=== PATIENT | male | born 1990 | race African-American/Black ===

== ENCOUNTER 2017-11-17 18:55 | Emergency (ER) | payer OTHER ==
[~2017-11-17] VITALS: Ht 180.3 cm; Wt 133.8 kg
[2017-11-17] MEDS ORDERED: KETOROLAC 60MG/2ML VIAL IM ONE (20:45)
[2017-11-17 21:14] VITALS: BP 126/84
== END 2017-11-17 22:21 | disposition home or self-care (01) ==
LOC: ER 18:55
DX: L03.032 Cellulitis of left toe (principal); I10 Essential (primary) hypertension
CPT/HCPCS: 96372; 99283; J1885